=== PATIENT | female | born 1990 | race Caucasian/White ===

== ENCOUNTER 2016-08-01 15:17 | Emergency (ER) | payer MEDICAID ==
[~2016-08-01] VITALS: Ht 167.6 cm; Wt 72.7 kg
[~2016-08-01 15:17] MED LIST: AMOXICILLI400 MG/51 PO; ATROPINE PO; DEPO-PROVER150 MG/M1 IM; DIPHENOXYLATE PO; FLAGYL 250250 MG/TAB PO; FLAGYL ER750 MG PO; MAALOX PLUS PO; MACROBID100 MG PO; MOTRIN CHI100 MG/5 M PO; MVI; NO HOME MEDICATIONS; NORCO 325 MG-51 TAB PO; PEPCID 20MG TAB20 MG PO; PREDNISONE20 MG PO; PRENATAL1 TA1 PO; VENTOLIN0.09 MG IH; ZITHROMAX Z PA250 MG PO; ZITHROMAX200 MG/5 M PO
[2016-08-01 15:18] VITALS: BP 155/85; PULSE 90; TEMP 98.2
[2016-08-01 15:49] LABS: PH 5 (5-8); URINE APPEARANCE Hazy; URINE BACTERIA Rare /hpf; URINE BILIRUBIN Negative (NEGATIVE); URINE BLOOD Negative (NEGATIVE); URINE COLOR Yellow; URINE GLUCOSE Negative (NEGATIVE); URINE KETONE Negative (NEGATIVE); URINE UROBILINOGEN Negative (NEGATIVE); URINE WBC None Seen /hpf
== END 2016-08-01 16:06 | disposition home or self-care (01) ==
LOC: COL.ER 15:17
PROVIDERS: Physician Assistant
DX: O21.9 Vomiting of pregnancy, unspecified (principal); O99.331 Smoking (tobacco) complicating pregnancy, first trimester; Z3A.01 Less than 8 weeks gestation of pregnancy

== ENCOUNTER 2016-08-10 21:31 | Emergency (ER) | payer MEDICAID ==
[~2016-08-10] VITALS: Ht 167.6 cm; Wt 75.0 kg
[2016-08-10 21:33] VITALS: TEMP 98.2
[2016-08-10 22:11] LABS: BASO % 0.5 % (0.0-2.0); EOS # 0.3 (0.0-0.7); EOS % 3.8 % (0-4.0); GRAN # 4.5 (1.4-6.5); GRAN % 58.4 % (42.2-75.2); HEMATOCRIT 38.5 % (37.0-47.0); HEMOGLOBIN 13.5 g/dl (12.5-16.0); LYMPH # 2.3 (1.2-3.4); LYMPH % 30.3 % (20.0-51.0); MEAN CELL VOLUME 91 fl (80.0-100.0); MEAN CORPUSCULAR HEMOGLOBIN 32 pg (27.0-31.0); MEAN CORPUSCULAR HGB CONC 35 g/dl (33.0-37.0); MEAN PLATELET VOLUME 9.7 fl (7.4-10.4); MONO # 0.5 (0.1-0.6); MONO % 6.6 % (1.7-9.3); PLATELET COUNT 266 K/mm3 (130-400); RED BLOOD COUNT 4.22 M/mm3 (4.10-5.30); REDCELL DISTRIBUTION WIDTH-CV 12.2 % (11.5-14.5); WHITE BLOOD COUNT 7.7 K/mm3 (4.8-10.8)
[2016-08-10 22:20] LABS: ADJUSTED CALCIUM 8.9 mg/dL (8.4-10.2); ALBUMIN 3.9 gm/dL (3.5-5.0); BILIRUBIN,TOTAL 0.6 mg/dL (0.0-1.0); CALCIUM 8.8 mg/dL (8.4-10.2); CREATININE, serum 0.63 mg/dL (0.52-1.25); POTASSIUM 3.7 mmol/L (3.4-5.0); TOTAL PROTEIN 6.8 gm/dL (6.4-8.2)
[2016-08-10 22:56] LABS: PH 6 (5-8); URINE APPEARANCE Hazy; URINE BACTERIA None Seen /hpf; URINE BILIRUBIN Negative (NEGATIVE); URINE BLOOD Negative (NEGATIVE); URINE COLOR Yellow; URINE GLUCOSE Negative (NEGATIVE); URINE KETONE Negative (NEGATIVE)
[2016-08-10] MEDS ORDERED: MACROBID 1100 MG/CAP PO (23:58)
[2016-08-11 00:55] VITALS: BP 129/84; PULSE 87
[2016-08-11 01:30] LABS: CHLAMYDIA/TRACH by PCR Female NOT DETECTED; NEISSERIA GON by PCR Female NOT DETECTED
== END 2016-08-11 00:58 | disposition home or self-care (01) ==
LOC: COL.ER 21:31
PROVIDERS: Emergency Medicine
DX: O20.0 Threatened abortion (principal); O23.41 Unspecified infection of urinary tract in pregnancy, first trimester; O99.331 Smoking (tobacco) complicating pregnancy, first trimester; F17.210 Nicotine dependence, cigarettes, uncomplicated; Z3A.01 Less than 8 weeks gestation of pregnancy

== ENCOUNTER 2017-05-27 12:08 | Emergency (ER) | payer MEDICAID ==
[~2017-05-27] VITALS: Ht 167.6 cm; Wt 62.7 kg
[~2017-05-27 12:08] MED LIST changes: +MACROBID 1100 MG/CAP PO
[2017-05-27 12:11] VITALS: BP 110/63; TEMP 98.8
[2017-05-27] MEDS ORDERED: AMOXICILLIN 50500 MG PO (14:00)
[2017-05-27 14:19] VITALS: PULSE 96
== END 2017-05-27 14:20 | disposition home or self-care (01) ==
LOC: COL.ER 12:08
DX: J02.0 Streptococcal pharyngitis (principal); F17.210 Nicotine dependence, cigarettes, uncomplicated

== ENCOUNTER 2017-07-01 02:41 | Emergency (ER) | payer MEDICAID ==
[~2017-07-01] VITALS: Ht 167.6 cm; Wt 62.3 kg
[~2017-07-01 02:41] MED LIST changes: +AMOXICILLIN 50500 MG PO
[2017-07-01] MEDS ORDERED: TUSS PO (02:58)
[2017-07-01 04:00] VITALS: BP 116/74; PULSE 108; TEMP 99.4
[2017-07-01] MEDS ORDERED: MIRENA52 MG IY (04:03)
== END 2017-07-01 04:06 | disposition home or self-care (01) ==
LOC: COL.ER 02:41
DX: J10.1 Influenza due to other identified influenza virus with other respiratory manifestations (principal); R00.0 Tachycardia, unspecified; R51 Headache
CPT/HCPCS: J0780; J1885; J7030

== ENCOUNTER 2018-11-13 18:41 | Emergency (ER) | payer OTHER ==
[~2018-11-13] VITALS: Ht 165.1 cm; Wt 68.2 kg
[~2018-11-13 18:41] MED LIST changes: +MIRENA52 MG IY; +TUSS PO
[2018-11-13 18:45] VITALS: BP 140/85; TEMP 97.1
[2018-11-13 18:55] LABS: COLLECTION METHOD CLEAN CATCH
[2018-11-13] MEDS ORDERED: CLARITIN 1010 MG/TAB PO (19:06)
[2018-11-13 19:17] LABS: MUCOUS Present /lpf; PH 6 (5-8); SQUAMOUS EPITHELIAL 0-2 /hpf; URINE APPEARANCE Hazy; URINE BACTERIA Rare /hpf; URINE BILIRUBIN Negative (NEGATIVE); URINE BLOOD 3+ (NEGATIVE); URINE COLOR Yellow; URINE GLUCOSE Negative (NEGATIVE); URINE KETONE Negative (NEGATIVE); URINE LEUKOCYTE ESTERASE 2+ (NEGATIVE); URINE NITRATE Positive (NEGATIVE); URINE PROTEIN(semi-quant) 1+ (NEGATIVE); URINE RBC 20-50 /hpf
[2018-11-13] MEDS ORDERED: PYRIDIUM200 M1 PO (19:26)
[2018-11-13] MEDS ORDERED: ZOFRAN 4MG T4 MG/TAB PO (19:26)
[2018-11-13] MEDS ORDERED: OMNICEF 300MG300 MG PO (19:26)
[2018-11-13 19:38] VITALS: PULSE 89
== END 2018-11-13 19:38 | disposition home or self-care (01) ==
LOC: COL.ER 18:41
PROVIDERS: Emergency Medicine
DX: N39.0 Urinary tract infection, site not specified (principal); Z90.49 Acquired absence of other specified parts of digestive tract; Z97.5 Presence of (intrauterine) contraceptive device

== ENCOUNTER → 2021-06-23 | Outpatient (CLI) | payer OTHER ==
[~2021-06-23] MED LIST changes: +CLARITIN 1010 MG/TAB PO; +OMNICEF 300MG300 MG PO; +PYRIDIUM200 M1 PO; +ZOFRAN 4MG T4 MG/TAB PO
== END ==
LOC: DIA.ED 12:50
DX: O24.419 Gestational diabetes mellitus in pregnancy, unspecified control (principal)
CPT/HCPCS: G0108

== ENCOUNTER 2021-08-11 21:54 | Outpatient (CLI) | payer OTHER ==
[~2021-08-11] VITALS: Ht 167.6 cm; Wt 85.0 kg
--- NOTE | 2021-08-11 22:02 | NUR ---
2201- Pt arrives to OB floor, ambulatory and accompanied by spouse. Escorted to room LDR 4 and instructions given. Pt oriented to room. Pt c/o ctx every 3-4 minutes for the last 1-2 hours. +FM, +CTX, -VB, LOF. Pt reports feeling a lot of pressure and has hx of delivering fast. 2208- EFM and toco applied. 2209- SVE 360/-3, intact. VSS,afebrile. Pt c/o more of pressure then pain. Pt breathing through ctx but still able to talk through them and answer questions. 2237- Dr. Samaniego called. See physician notification.
[2021-08-11] MEDS ORDERED: PRENATAL TABLET PO (22:17)
[2021-08-11] MEDS ORDERED: PROAIR HFA0.09 MG/AC (22:18)
[2021-08-11 22:21] VITALS: TEMP 98
[2021-08-11 22:30] VITALS: BP 128/78; PULSE 92; TEMP 98
[2021-08-12] VITALS: BP 111/70; PULSE 76; TEMP 97.4
--- NOTE | 2021-08-12 00:10 | NUR ---
2355- SVE unchanged. Pt comfortable being discharged home. Talked about when to come back to hospital. Pt demonstrates understanding. 0010- DC instructions reviewed and signed. DC'd home, ambulatory, accompanied by .
== END 2021-08-12 00:10 | disposition home or self-care (01) ==
LOC: LDRO 21:54 → LDR 22:19 → LDRO 08-12 00:10
DX: O62.9 Abnormality of forces of labor, unspecified (principal); Z3A.38 38 weeks gestation of pregnancy
CPT/HCPCS: OP

== ENCOUNTER 2021-08-19 06:13 | Inpatient (IN) | payer OTHER ==
[~2021-08-19] VITALS: Ht 167.6 cm; Wt 87.2 kg
[2021-08-19] VITALS (22 sets, daily range): BP systolic 112–166; BP diastolic 62–99; PULSE 68–120; TEMP 97.8–98.4
[~2021-08-19 06:13] MED LIST changes: +PRENATAL TABLET PO; +PROAIR HFA0.09 MG/AC
[2021-08-19 07:01] LABS: BASO % 0.3 % (0.0-2.0); EOS # 0.1 K/mm3 (0.0-0.7); EOS % 0.9 % (0.0-4.0); GRAN # 6.7 K/mm3 (1.4-6.5); GRAN % 75.3 % (42.2-75.2); HEMOGLOBIN 12.3 g/dl (12.5-16.0); LYMPH # 1.5 K/mm3 (1.2-3.4); LYMPH % 16.2 % (20.0-51.0); MEAN CELL VOLUME 88 fl (80.0-100.0); MEAN CORPUSCULAR HEMOGLOBIN 31 pg (27-31); MEAN CORPUSCULAR HGB CONC 35 g/dl (33.0-37.0); MEAN PLATELET VOLUME 10.4 fl (7.4-10.4); MONO # 0.6 K/mm3 (0.1-0.6); PLATELET COUNT 259 K/mm3 (130-400); RED BLOOD COUNT 4.03 M/mm3 (4.10-5.30)
[2021-08-19 07:03] LABS: HEMATOCRIT 35.4 % (37.0-47.0)
--- NOTE | 2021-08-19 08:00 | NUR ---
AT BEDSIDE. BEDSIDE ULTRASOUND PERFORMED, VERTEX PRESENTATION CONFIRMED. SVE /-3, AROM @ 0800 WITH CLEAR FLUID NOTED. CATEGORY 1 EFM TRACING. CONTRACTIONS Q1.5-4MIN APART.
--- NOTE | 2021-08-19 09:35 | NUR ---
PT TO SITTING POSITION FOR EPIDURAL PLACEMENT. JULIUS HOWARD AT BEDSIDE DISCUSSING RISKS, CONSENTS SIGNED, PT AGREEABLE TO CONTINUE. VITAL SIGNS STABLE. CATEGORY 1 EFM TRACING PRIOR TO SITTING UP. DIFFICULTY TRACING EFM/TOCO DUE TO MATERNAL POSITIONING. 0935: SINGLE SHOT @ 0935 PER JULIUS HOWARD 0938: TEST DOSE @ 0938 PER JULIUS HOWARD
--- NOTE | 2021-08-19 10:10 | NUR ---
1010: AT BEDSIDE, SVE COMPLETE/+3. ROOM PREPARED FOR DELIVERY. 1018: OF VIABLE MALE INFANT PER . NUCHAL X1 AND TRUE KNOT NOTED PLACED ON MATERNAL ABDOMEN, CORD CLAMPED X2 AND CUT BY FOB. CARE OF INFANT ASSUMED BY EDGARDO RODRIGUEZ. PERINEUM REMAINS INTACT. LOCHIA SCANT. 1022: OF PLACENTA PER . PITOCIN INFUSING PER PROTOCOL. FUNDUS FIRM AT UMBILICUS. LOCHIA SCANT, NO CLOTS NOTED. EBL 100CC PER FOLLOWING DELIVERY.
--- NOTE | 2021-08-19 11:45 | NUR ---
PT C/O SUDDEN ONSET HEADACHE. STATES "I GET HEADACHES FROM TIME TO TIME," PT PLACED IN SUPINE POSITION LYING FLAT, UNSURE IF THIS PROVIDES ANY RELIEF OR NOT. INFANT SO PLACED BACK TO SEMI FOWLERS. JULIUS HOWARD AT BEDSIDE DISCUSSING POTENTIAL WET TAP. PT AWARE OF SYMPTOMS AND WILL NOTIFY STAFF WITH ANY CHANGES. COFFEE PROVIDED, IV FLUIDS INFUSING, PT DRINKING WATER UPON THIS NURSE LEAVING ROOM. VITAL SIGNS STABLE AT THIS TIME. LOCHIA SCANT, FUNDUS FIRM AT UMBILICUS, NO CLOTS NOTED. WILL CONTINUE TO MONITOR HEADACHE AND NOTIFY JULIUS OF CHANGES. EPIDURAL REMAINS IN PLACE PER ROGELIO GRAHAM CRNA.
--- NOTE | 2021-08-19 13:49 | NUR ---
PT CONTINUES C/O DULL LINGERING HEADACHE, MODERATE RELIEF WITH PO MOTRIN AND TYLENOL. ATTEMPTING TO EAT AND DRINK AT THIS TIME. VITAL SIGNS STABLE. LEFT LEG REMAINS "HEAVY" AND RIGHT LEG IS "TINGLING AND BEGINNING TO GET FEELING BACK." JULIUS VAZQUEZ CRNA NOTIFIED.
--- NOTE | 2021-08-19 14:30 | NUR ---
PT REPORTS HEADACHE IS GONE, SHE HAS FEELING BACK IN HER RIGHT LEG, BUT LEFT LEG REMAINS HEAVY AND "NUMB IN THE FOOT AND THIGH". PT ASSISTED TO EDGE OF BED, DENIES DIZZINESS OR HEADACHE. EPIDURAL CATHETER REMOVED PER ROGELIO FROM JULIUS HOWARD. VITAL SIGNS STABLE. LOCHIA SCANT, NO CLOTS NOTED. FUNDUS FIRM AT UMBILICUS. PT ASSISTED INTO WHEELCHAIR AND INTO RESTROOM. ABLE TO STAND AND PIVOT TO TOILET WITH SBA. CONTINUES TO DENY DIZZINESS OR FEELING FAINT. VAL CARE, CLEAN GOWN, CLEAN UNDERWEAR, AND PAD PROVIDED. PT ASSISTED BACK INTO WHEELCHAIR AND TO ROOM 207 TO CONTINUE CARES. CONTINUES TO DENY HEADACHE, EDUCATED TO RING CALL LIGHT PRIOR TO AMBULATION UNTIL FULL SENSATION RETURNS TO BLE. PT AGREEABLE TO POC. CALL LIGHT WITHIN REACH UPON EXITING ROOM.
[2021-08-20 01:55] VITALS: BP 108/67; PULSE 71; TEMP 97.9
[2021-08-20 06:03] LABS: HEMOGLOBIN 11.1 g/dl (12.5-16.0)
[2021-08-20 06:05] LABS: HEMATOCRIT 32.5 % (37.0-47.0)
[2021-08-20 07:40] VITALS: BP 117/79; PULSE 65; TEMP 97.4
--- NOTE | 2021-08-20 10:00 | NUR ---
1000PER PATIENT'S REQEUST, DISCHARGE DVDS BROUGHT INTO WATCH FOR FOB
--- NOTE | 2021-08-20 16:37 | NUR ---
1505DISCHARGE INSTRUCTIONS REVIEWED WITH PATIENT. PATIENT VERBALIZED UNDERSTANDING. WILL NOTIFY NURSING STAFF WHEN READY TO LEAVE. 1530ALL PERSONAL BELONGINGS GATHERED FROM PATIENT ROOM. PATIENT LEFT AMBULATORY AND IN NO APPARENT DISTRESS. PATIENT ACCOMPANIED BY SIGNIFICANT OTHER AND THIS RN.
== END 2021-08-20 15:30 | disposition home or self-care (01) | DRG 807 ==
LOC: OB 06:13 → LDR 06:13 → OB 14:30
PROVIDERS: ADMIT Obstetrics & Gynecology
PROC: 10E0XZZ Delivery of Products of Conception, External Approach (ICD-10-PCS; principal; 2021-08-19)
PROC: 10907ZC Drainage of Amniotic Fluid, Therapeutic from Products of Conception, Via Natural or Artificial Opening (ICD-10-PCS; 2021-08-19)
PROC: 3E033VJ Introduction of Other Hormone into Peripheral Vein, Percutaneous Approach (ICD-10-PCS; 2021-08-19)
DX: O24.420 Gestational diabetes mellitus in childbirth, diet controlled (principal); Z37.0 Single live birth; O99.62 Diseases of the digestive system complicating childbirth; K21.9 Gastro-esophageal reflux disease without esophagitis; O99.52 Diseases of the respiratory system complicating childbirth; J45.909 Unspecified asthma, uncomplicated; O69.81X0 Labor and delivery complicated by cord around neck, without compression, not applicable or unspecified; O69.2XX0 Labor and delivery complicated by other cord entanglement, with compression, not applicable or unspecified; Z3A.39 39 weeks gestation of pregnancy
CPT/HCPCS: J2590; J7120